=== PATIENT | male | born 1970 | race Hispanic/Latino ===

== ENCOUNTER 2020-12-28 12:38 | Emergency (ER) | payer SELFPAY ==
[~2020-12-28 12:38] MED LIST: CEPHALEXIN500 MG OR; NO HOME MEDS
[2020-12-28 13:40] VITALS: BP 134/84
== END 2020-12-28 13:40 | disposition home or self-care (01) | DRG 605 ==
LOC: ED 12:38
DX: S21.139A Puncture wound without foreign body of unspecified front wall of thorax without penetration into thoracic cavity, initial encounter (principal); W20.8XXA Other cause of strike by thrown, projected or falling object, initial encounter; Y93.89 Activity, other specified; Y92.89 Other specified places as the place of occurrence of the external cause; Y99.0 Civilian activity done for income or pay

== ENCOUNTER 2024-05-07 00:11 | Emergency (ER) | payer SELFPAY ==
[~2024-05-07] VITALS: Ht 170.2 cm; Wt 59.0 kg
[2024-05-07 00:36] VITALS: BP 106/77
[2024-05-07 00:45] VITALS: BP 105/77
[2024-05-07 01:00] VITALS: BP 112/79
[2024-05-07 02:00] VITALS: BP 105/79
[2024-05-07 02:06] VITALS: BP 105/79
== END 2024-05-07 02:10 | disposition home or self-care (01) | DRG 156 ==
LOC: ED 00:11
DX: S02.2XXA Fracture of nasal bones, initial encounter for closed fracture (principal); S01.21XA Laceration without foreign body of nose, initial encounter; W22.8XXA Striking against or struck by other objects, initial encounter; Y92.89 Other specified places as the place of occurrence of the external cause; Y99.0 Civilian activity done for income or pay